=== PATIENT | female | born 1965 | race Caucasian/White ===

== ENCOUNTER 2018-05-21 10:42 | Emergency (ER) | payer BC ==
[2018-05-21] MEDS ORDERED: ONDANSETRON HCL INJ/PF 4 MG/2 ML SDV IV ONE (11:42)
[2018-05-21] MEDS ORDERED: NORMAL SALINE 1000 ML 1,000 ML IV ONE (11:42)
--- NOTE | 2018-05-21 11:46 | ER Document Report ---
ED Medical Screen (RME) - General Chief Complaint: Abdominal Pain Stated Complaint: ABDOMINAL PAIN Time Seen by Provider: 05/21/18 11:40 Primary Care Provider: HORACE SEBASTIAN MD [Primary Care Provider] - Follow up as needed Notes: Patient is here because of abdominal pain, vomiting, and diarrhea. Patient was first diagnosed with diverticulitis about 2 years ago. She has had one episode since then of similar symptoms. This current episode started about 2 weeks ago with pain. she got worse and she saw her primary care provider 1 week ago who put her on Cipro and metronidazole, which she is currently finishing. She is persistently been vomiting and unable to keep down food or fluids, not even clear liquids. She went back to see her primary care physician who referred her here to rule out a perforation, or other complication. - Related Data Allergies/Adverse Reactions: prochlorperazine [From Compazine] Allergy (Verified 05/21/18 11:42) Sulfa (Sulfonamide Antibiotics) Allergy (Verified 05/21/18 11:42) Past Medical History - Social History Chew tobacco use (# tins/day): No Frequency of alcohol use: None Drug Abuse: None Neurological Medical History: Reports: Hx Migraine Renal/ Medical History: Denies: Hx Peritoneal Dialysis Past Surgical History: Reports: Hx Appendectomy, Hx Section, Hx Cholecystectomy, Hx Hysterectomy Physical Exam - Vital signs Vitals: Temp Pulse Resp BP Pulse Ox 98.4 F 63 16 121/75 99 05/21/18 11:08 05/21/18 11:08 05/21/18 11:08 05/21/18 11:08 05/21/18 11:08 Course - Vital Signs Vital signs: Temp Pulse Resp BP Pulse Ox 98.4 F 63 16 121/75 99 05/21/18 11:08 05/21/18 11:08 05/21/18 11:08 05/21/18 11:08 05/21/18 11:08 Doctor's Discharge - Discharge Referrals: HORACE SEBASTIAN MD [Primary Care Provider] - Follow up as needed
[2018-05-21 12:21] LABS: ABSOLUTE EOSINOPHILS # (AUTO) 0.1 10^3/uL (0.0-0.6); ABSOLUTE LYMPHOCYTES (AUTO) 1.5 10^3/uL (0.5-4.7); ABSOLUTE MONOCYTES (AUTO) 0.5 10^3/uL (0.1-1.4); ABSOLUTE NEUT (AUTO) 4.7 10^3/uL (1.7-8.2); BASOPHILS % (AUTO) 0.7 % (0-2); EOSINOPHILS % (AUTO) 1.8 % (0-6); HEMATOCRIT 42.8 % (36.0-47.0); HEMOGLOBIN 14.5 g/dL (12.0-15.5); LYMPHOCYTES % (AUTO) 21.4 % (13-45); MEAN CORPUSCULAR HGB CONC 33.9 g/dL (32.0-36.0); MEAN CORPUSCULAR VOLUME 83 fl (80-97); PLATELET COUNT 378 10^3/uL (150-450); RED BLOOD COUNT 5.18 10^6/uL (3.72-5.28); SEGMENTED NEUTROPHILS % (AUTO) 68.1 % (42-78); TOTAL CELLS COUNTED % (AUTO) 100 %; WHITE BLOOD COUNT 6.9 10^3/uL (4.0-10.5)
[2018-05-21 12:38] LABS: ALANINE AMINOTRANSFERASE 47 U/L (9-52); ALBUMIN 4.9 g/dL (3.5-5.0); ALKALINE PHOSPHATASE 74 U/L (38-126); ANION GAP 9 (5-19); ASPARTATE AMINO TRANSFERASE 56 U/L (14-36); BILIRUBIN,DIRECT 0.3 mg/dL (0.0-0.4); BILIRUBIN,TOTAL 0.6 mg/dL (0.2-1.3); BLOOD UREA NITROGEN 12 mg/dL (7-20); CALCIUM 9.7 mg/dL (8.4-10.2); CARBON DIOXIDE 32 mmol/L (22-30); CHLORIDE 102 mmol/L (98-107); GLUCOSE 100 mg/dL (75-110); LIPASE 51.9 U/L (23-300); POTASSIUM 3.7 mmol/L (3.6-5.0)
[2018-05-21] MEDS ORDERED: DIPHENHYDRAMINE HCL 50 MG/ML VIAL IV ONE (13:36)
[2018-05-21] MEDS ORDERED: KETOROLAC TROMETHAMINE INJ/PF 30 MG/1 ML SDV IV ONE (13:36)
[2018-05-21] MEDS ORDERED: ACETAMINOPHEN 325 MG TABLET PO ONE (13:38)
--- NOTE | 2018-05-21 13:38 | ER Document Report ---
ED General - General Chief Complaint: Abdominal Pain Stated Complaint: ABDOMINAL PAIN Time Seen by Provider: 05/21/18 11:40 Primary Care Provider: HORACE SEBASTIAN MD [NO LOCAL MD] - Follow up as needed Notes: Patient with history of diverticulosis diagnosed in 2017 via colonoscopy is referred here by her primary doctor to rule out a perforation due to abdominal pain, vomiting, diarrhea. Patient has had one episode of diverticulitis but it was not as severe as this episode. Symptoms started approximately 11 days ago and patient was placed on ciprofloxacin and Flagyl last Thursday. Symptoms continued to get worse which include persistent vomiting and she is unable to tolerate any p.o. intake prompting her to get seen today. Patient denies fevers, chills, complains of headache. Patient denies chest pain or shortness of breath. Patient states she has no appetite, complains of nausea, complains of diarrhea. Patient denies any vomiting at this time. Patient denies any other symptoms. - Related Data Allergies/Adverse Reactions: prochlorperazine [From Compazine] Allergy (Verified 05/21/18 11:42) Sulfa (Sulfonamide Antibiotics) Allergy (Verified 05/21/18 11:42) Past Medical History - Social History Smoking Status: Never Smoker Chew tobacco use (# tins/day): No Frequency of alcohol use: None Drug Abuse: None Family History: None Patient has suicidal ideation: No Patient has homicidal ideation: No Neurological Medical History: Reports: Hx Migraine Renal/ Medical History: Denies: Hx Peritoneal Dialysis Past Surgical History: Reports: Hx Appendectomy, Hx Section, Hx Cholecystectomy, Hx Hysterectomy Review of Systems - Review of Systems Constitutional: See HPI EENT: No symptoms reported Cardiovascular: See HPI Respiratory: See HPI Gastrointestinal: See HPI Genitourinary: No symptoms reported Female Genitourinary: No symptoms reported Musculoskeletal: No symptoms reported Skin: No symptoms reported Hematologic/Lymphatic: No symptoms reported Neurological/Psychological: No symptoms reported Physical Exam - Vital signs Vitals: Temp Pulse Resp BP Pulse Ox 98.4 F 63 16 121/75 99 05/21/18 11:08 05/21/18 11:08 05/21/18 11:08 05/21/18 11:08 05/21/18 11:08 - Notes Notes: PHYSICAL EXAMINATION: Reviewed vital signs and charting by RN GENERAL: Alert, interacts well. No acute distress. HEAD: Normocephalic, atraumatic. EYES: Pupils equal, round. Extraocular movements intact. ENT: Oral mucosa moist. NECK: Full range of motion. Trachea midline. LUNGS: Clear to auscultation bilaterally, no wheezes, rales, or rhonchi. No respiratory distress. HEART: Regular rate and rhythm. No murmur ABDOMEN: soft, epigastric tenderness to light palpation, left lower quadrant tenderness to palpation. Non-distended. Bowel sounds present in all 4 quadrants. no McBurney's point tenderness, no Tan sign. EXTREMITIES: Moves all 4 extremities spontaneously. No edema, No cyanosis. NEUROLOGICAL: Alert and oriented. Normal speech. PSYCH: Normal affect, normal mood. SKIN: Warm, dry, normal turgor. No rashes or lesions noted. Course - Re-evaluation Re-evalutation: 05/21/18 13:35 52-year-old female appears in mild distress referred over from her primary care provider to rule out a GI perforation due to diverticulitis. Patient is current ly consuming p.o. contrast in preparation for CT abdomen. Patient has received Zofran 8 mg IV 1 time about 2 hours ago and states that it did help. She is currently complaining of a headache and is requesting something for it. 05/21/18 15:25 CT abdomen and pelvis with oral and IV contrast completed showing no evidence of diverticulitis. No evidence of any other acute pathology. Patient's discomfort could be related to antibiotic usage. She has been on Flagyl which is known to cause GI discomfort. There is no evidence of any mesenteric ischemia as she has not been able to eat, she has history of cholecystectomy and appendectomy. She was complaining of a bloating sensation that improved after antibiotic usage. I do not feel that she has gastritis as she does not have an epigastric burning, pitting sensation and she has not been taking NSAIDs. At this point she is stable for discharge home as we have ruled out in acute surgical abdomen, and she has strict return precautions. 05/21/18 15:37 - Vital Signs Vital signs: Temp Pulse Resp BP Pulse Ox 98.4 F 63 16 121/75 99 05/21/18 11:08 05/21/18 11:08 05/21/18 11:08 05/21/18 11:08 05/21/18 11:08 - Laboratory Result Diagrams: 05/21/18 11:57 05/21/18 11:57 Laboratory results interpreted by me: 05/21/18 05/21/18 11:57 13:20 Carbon Dioxide 32 H AST 56 H Urine Ketones 20 H Ur Leukocyte Esterase TRACE H Discharge - Discharge Clinical Impression: Diverticulosis large intestine w/o perforation or abscess w/o bleeding Abdominal pain Qualifiers: Abdominal location: unspecified location Qualified Code(s): R10.9 - Unspecified abdominal pain Condition: Good Disposition: HOME, SELF-CARE Instructions: Abdominal Pain ([facility]), Antinausea Medication ([facility]) Additional Instructions: He was seen in the emergency department this afternoon for abdominal pain. The CT study that was performed did not show any perforation of your intestine, this is very reassuring. It did not show any evidence of diverticulitis. At this time you are stable for discharge home. If you develop severe abdominal pain, intractable vomiting even after taking antinausea meds occasion, develop high fever, have gross blood in vomit or gross blood in diarrhea please immediately return to the emergency department. Referrals: HORACE SEBASTIAN MD [NO LOCAL MD] - Follow up as needed
[2018-05-21 13:58] LABS: APPEARANCE,URINE CLEAR; BILIRUBIN,URINE NEGATIVE (NEGATIVE); COLOR,URINE YELLOW; GLUCOSE, URINE NEGATIVE (NEGATIVE); KETONES,URINE 20 mg/dL (NEGATIVE); LEUKOCYTE ESTERASE,URINE TRACE (NEGATIVE); NITRITE,URINE NEGATIVE (NEGATIVE); PROTEIN,URINE NEGATIVE (NEGATIVE); URINE SPECIFIC GRAVITY 1.005; UROBILINOGEN,URINE NEGATIVE mg/dL (<2.0)
--- NOTE | 2018-05-21 15:03 | RADIOLOGY REPORT (SQ) ---
EXAM DESCRIPTION: CT ABD/PELVIS WITH IV ORAL COMPLETED DATE/TIME: 05/21/2018 2:49 pm REASON FOR STUDY: Hx diverticulosis, rule out perforation or abscess COMPARISON: None. TECHNIQUE: CT scan of the abdomen and pelvis performed using helical scanning technique with dynamic intravenous contrast injection. No oral contrast. Images reviewed with lung, soft tissue, and bone windows. Reconstructed coronal and sagittal MPR images reviewed. Delayed images for evaluation of the urinary system also acquired. All images stored on PACS. All CT scanners at this facility use dose modulation, iterative reconstruction, and/or weight based d osing when appropriate to reduce radiation dose to as low as reasonably achievable (ALARA). [facility]: Dose Right [facility]: CareDose [facility]: Dose Right [facility]: Teradose 4D [facility]: Ischemia Care CONTRAST TYPE AND DOSE: contrast/concentration: Isovue 350.00 mg/ml; Total Contrast Delivered: 95.0 ml; Total Saline Delivered: 71.0 ml RENAL FUNCTION: BUN 12, creatinine 0.84 RADIATION DOSE: CT Rad equipment meets quality standard of care and radiation dose reduction techniq ues were employed. CTDIvol: 11.7 - 16.1 mGy. DLP: 1509 mGy-cm.. LIMITATIONS: None. FINDINGS: LOWER CHEST: No significant findings. No nodules or infiltrates. LIVER: Normal size. No masses. No dilated ducts. SPLEEN: Normal size. No focal lesions. PANCREAS: No masses. No significant calcifications. No adjacent inflammation or peripancreatic fluid collections. Pancreatic duct not dilated. GALLBLADDER: Surgically absent. ADRENAL GLANDS: No significant masses or asymmetry. RIGHT KIDNEY AND URETER: No solid masses. No significant calcifications. No hydronephrosis or hyd roureter. LEFT KIDNEY AND URETER: No solid masses. No significant calcifications. No hydronephrosis or hydr oureter. AORTA AND VESSELS: No aneurysm. No dissection. Renal arteries, SMA, celiac without stenosis. RETROPERITONEUM: No retroperitoneal adenopathy, hemorrhage or masses. BOWEL AND PERITONEAL CAVITY: No masses or inflammatory changes. No free fluid or peritoneal masses. There are scattered diverticuli. No acute diverticulitis. APPENDIX: Surgically absent. PELVIS: No mass. No free fluid. Normal bladder. ABDOMINAL WALL: There is a small umbilical hernia containing omental fat only. BONES: No significant or acute findings. OTHER: No other significant finding. IMPRESSION: Infrequent diverticuli. No acute diverticulitis. No focal inflammatory changes. TECHNICAL DOCUMENTATION: JOB ID: [id number] Quality ID # [id number]: Final reports with documentation of one or more dose reduction techniques (e.g., Au tomated exposure control, adjustment of the mA and/or kV according to patient size, use of iterative reconstruction technique) 2010 [employer]- All Rights Reserved Reading location - IP/workstation name: [email or web address]
[2018-05-21] MEDS ORDERED: ONDANSETRON ODT 4 MG TAB (6 TAB/ER DISP) PO PRN (15:41)
[2018-05-21 16:00] VITALS: BP 138/87
== END 2018-05-21 16:02 | disposition home or self-care (01) ==
LOC: ER 10:42
DX: K57.30 Diverticulosis of large intestine without perforation or abscess without bleeding (principal); R10.9 Unspecified abdominal pain; R11.10 Vomiting, unspecified; R19.7 Diarrhea, unspecified
CPT/HCPCS: 99284; 96361; 96374; 36415; 83690; 85025; 80053; 81001; 74177; J2405; J7030